=== PATIENT | male | born 1955 | race Caucasian/White ===

== ENCOUNTER → 2017-10-19 | Outpatient (CLI) | payer OTHER ==
--- NOTE | 2017-10-20 03:05 | HKNOTE ---
DATE OF SERVICE: 10/19/2017 MAIN COMPLAINT: Checkup on left total hip replacement using an ASR recall socket. HISTORY: The patient is a 61-year-old male who underwent a left hip replacement performed by me on 03/26/2008. He comes for a "regular checkup" of the hip. The patient has seen me on a regular basis since he received a notice about the recall. This appear s to be his 6th visit for a regular checkup with cobalt and chromium tests being ordered. The cobalt and chromium levels have been consistently increased since 11/26/2010. The level on 11/2015 was cobalt 26 and chromium 25.4. On 11/27/2010, the patient had lab tests which showed sedim entation rate of 1 and C-reactive protein less than 0.8. He has not had any pain in the left hip since the surgery. He is very pleased with it. Patient is extremely active. Although he is 61, he looks at least 10 years younger and he frequentl y hikes in the [facility] and other areas of steep terrain. This past weekend, for example, he hiked a t least 5 miles. Sometimes he hikes 5 times a week. PHYSICAL EXAMINATION: GENERAL: An extremely youthful 61-year-old male. VITAL SIGNS: Height 6 feet 3 inches, weight 250 pounds. Blood pressure 110/65, temperature 98.2. GAIT: Patient's gait is normal: Both hips have full range of motion without pain. DISCUSSION: I had a long discussion with him today about the levels of cobalt and chromium. The go al for the safe levels of cobalt and chromium have moved around, and currently, I believe that anyth ing higher than 10 is of concern, especially if patient has any pain. When I called him after the c obalt and chromium levels of 09/26/2014, things were very borderline. The chromium was 8 and the co balt was 13.6, but now has very much elevated cobalt and chromium levels and this is of some concern even without any pain. I spent considerable time discussing with him what might be involved if we were to exchange the sock et. The exact details and hospital stay, etc., were discussed with him. He is being sent for new cobalt and chromium levels and I will call him with the results. If they a re any higher than we have here at the present time, I may recommend that we revise the socket. Dictated By: JACQUE QUEEN/SONAL Conf#: [id number] DID#: [id number]
--- NOTE | 2017-10-20 13:04 | RADRPT ---
PROCEDURE: XR pelvis and left hip. CLINICAL INDICATION: PAIN TECHNIQUE: AP pelvis, AP and frog lateral views of the hip were performed. COMPARISON: 09/21/2016 FINDINGS: There is normal mineralization and alignment. A total left hip arthroplasty is again seen. This appears to be anatomically aligned and well seated . No fracture is identified. The right hip is unremarkable. There is no significant joint space narrowing. The soft tissues are unremarkable. IMPRESSION: Stable total left hip arthroplasty. RPTAT:AAJJ Physician Rodger Date Time Electronically viewed and signed by Deshaun He Physician on 10/20/2017 13:04 NATHAN/
== END | disposition home or self-care (01) ==
LOC: HKI 10:45
DX: Z09 Encounter for follow-up examination after completed treatment for conditions other than malignant neoplasm (principal); Z96.642 Presence of left artificial hip joint
CPT/HCPCS: 73502; G0463

== ENCOUNTER → 2018-08-21 | Outpatient (CLI) | END | disposition home or self-care (01) ==

== ENCOUNTER → 2018-09-04 | Outpatient (CLI) | END | disposition home or self-care (01) ==

== ENCOUNTER → 2018-10-16 | Outpatient (CLI) | END | disposition home or self-care (01) ==

== ENCOUNTER → 2018-10-16 | Outpatient (CLI) | END | disposition home or self-care (01) ==

== ENCOUNTER 2018-11-02 09:33 | Inpatient (IN) | END 2018-11-04 16:20 | disposition home health service (06) | DRG 467 ==

== ENCOUNTER → 2018-11-17 | Outpatient (CLI) | END | disposition home or self-care (01) ==

== ENCOUNTER → 2018-12-11 | Outpatient (CLI) | payer BC ==
[~2018-12-11] MED LIST: ENOX100D2 SC; LISI1TAB8 PO; ROSU5TAB11 PO; WARF5TAB PO
--- NOTE | 2018-12-11 12:41 | PN ---
Date/Time of Note Date/Time of Note DATE: 12/11/18 TIME: 12:39 Assessment/Plan VTE Prophylaxis Pharmacological prophylaxis: NA/contraindicated Pharm contraindication: low risk/ambulating Assessment/Plan Assessment/Plan 62-year-old male who is progressing well after revision of his left hip replacement. The patient needs new labs for cobalt and chromium levels since the revision was done for a [id number] hip. He will follow-up in 6 weeks with his new labs. Subjective 24 Hr Interval Summary Free Text/Dictation Juan Jose is here for 6-week follow-up on his left hip revision. He is progressing quite well and is pleased with his outcome. He is able to do most of his activities without discomfort. There is no history of fever or chills. Exam/Review of Systems Vital Signs Vitals She is afebrile Exam Examination shows a pleasant male. He is awake alert and oriented. Patient is ambulating without a limp. Left hip incision is well-healed. Range of motion is somewhat limited. There is no neurovascular deficit. There is no leg length inequality. X-rays of the hips were done and show a left total hip replacement in good position with no evidence of loosening QUE MONTERO Dec 11, 2018 12:41
--- NOTE | 2018-12-12 03:26 | RADRPT ---
PROCEDURE: Pelvis and left hip study CLINICAL INDICATION: PAIN TECHNIQUE: AP pelvis and AP and frog lateral views of the left hip were performed. COMPARISON: Pelvis and left hip study 08/21/2018 FINDINGS: There is a total left hip prosthesis in place without dislocation or loosening. No acute fractures. N o focal bony blastic or lytic lesions. Dystrophic calcification lateral to the proximal left femoral prosthetic component. 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 IMPRESSION: 1. Unremarkable left hip prosthesis. 2. 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 3. No acute fractures. RPTAT:AAJJ Physician Lynnette Date Time Electronically viewed and signed by Zaida Patiño Physician on 12/12/2018 03:25 BM/
== END | disposition home or self-care (01) ==
LOC: HKI 10:30
PROVIDERS: ATTEND Orthopaedic Surgery
DX: Z09 Encounter for follow-up examination after completed treatment for conditions other than malignant neoplasm (principal); Z96.642 Presence of left artificial hip joint
CPT/HCPCS: 73502